=== PATIENT | male | born 2000 | race Caucasian/White ===

== ENCOUNTER 2020-11-29 01:54 | Emergency (ER) | payer SELFPAY ==
[~2020-11-29] VITALS: Ht 185.4 cm; Wt 70.5 kg
[2020-11-29 04:18] VITALS: BP 118/65; PULSE 88; TEMP 97.4
== END 2020-11-29 04:18 | disposition home or self-care (01) ==
LOC: COL.ER 01:54
DX: S03.01XA Dislocation of jaw, right side, initial encounter (principal); X58.XXXA Exposure to other specified factors, initial encounter
CPT/HCPCS: J2060